=== PATIENT | female | born 1960 ===

== ENCOUNTER 2020-06-23 22:02 | Outpatient (REF) | payer BC, SELFPAY ==
[2020-06-28 02:48] LABS: SARS-CoV-2 RNA Undetected (Undetected)
== END 2020-06-23 22:22 ==
LOC: NCHCN 22:02
PROVIDERS: Visit Provider Nurse Practitioner Family
DX: Z20.828 Contact with and (suspected) exposure to other viral communicable diseases (principal)
CPT/HCPCS: U0003

== ENCOUNTER 2021-12-13 09:27 | Outpatient (REF) | payer BC, SELFPAY ==
[2021-12-15 12:33] LABS: COVID-19 RT-PCR UVMMC Result Negative (Negative)
== END 2021-12-13 09:28 | disposition home or self-care (01) ==
LOC: NCHCN 09:27
PROVIDERS: Visit Provider Registered Nurse
DX: R11.0 Nausea (principal); R51.9 Headache, unspecified; R10.9 Unspecified abdominal pain; Z20.822 Contact with and (suspected) exposure to COVID-19
CPT/HCPCS: U0003; 87086

== ENCOUNTER 2024-07-12 18:42 | Outpatient (REF) | payer BC, SELFPAY ==
[2024-07-12 15:41] LABS: HCT 43.6 % (36.0-46.0); HGB 14.3 g/dL (11.2-15.7); MCH 31.9 pg (27.0-33.0); MCHC 32.8 % (32.0-36.0); MCV 97 fL (80-95); MPV 11.3 fL (8.0-11.0); Platelet Count 253 10^3/uL (130-400); RBC 4.48 10^6/uL (3.93-5.22); RDW 12.4 % (11.7-14.6); RDW-SD 44.5 fL; WBC 6.07 10^3/uL (4.4-10.8)
[2024-07-12 16:05] LABS: ALT 20 U/L (14-59); AST 19 U/L (15-37); Albumin 3.6 g/dL (3.4-5.0); Alkaline Phosphatase 67 U/L (46-116); Anion Gap 5.7 mmol/L (3-11); BUN 16 mg/dL (7-18); Bilirubin, Total 0.52 mg/dL (0.2-1.0); CO2 28.3 mmol/L (21.0-32.0); Calculated LDL 95 mg/dL (<100); Chloride 110 mmol/L (98-107); Cholesterol 186 mg/dL (<200); Estimated GFR 64.09 (mL/min/1.73m2); Glucose 63 mg/dL (74-106); HDL Cholesterol 75 mg/dL (40-60); Potassium 4.3 mmol/L (3.5-5.1); Sodium 144 mmol/L (136-145); TSH 1.65 uIU/mL (0.36-3.74); Total Protein 6.7 g/dL (6.4-8.2); Triglyceride 83 mg/dL (<150)
[2024-07-12 17:41] LABS: Hemoglobin A1C 5.1 % (<5.7)
== END 2024-07-12 18:43 | disposition home or self-care (01) ==
LOC: NCHCN 18:42
PROVIDERS: Visit Provider Nurse Practitioner Family
DX: F41.1 Generalized anxiety disorder (principal); Z13.220 Encounter for screening for lipoid disorders; Z13.1 Encounter for screening for diabetes mellitus; Z13.0 Encounter for screening for diseases of the blood and blood-forming organs and certain disorders involving the immune mechanism
CPT/HCPCS: 80053; 80061; 85027; 83036; 84443